=== PATIENT | male | born 1990 | race Caucasian/White ===

== ENCOUNTER 2017-08-03 14:56 | Emergency (ER) | payer SELFPAY ==
[2017-08-03] MEDS ORDERED: Dexamethasone 4 mg/ml Vial ONE (15:23)
[2017-08-03] MEDS ORDERED: Bicillin LA 1.2 MILLION UNITS/2 ML SYRINGE ONE (15:23)
== END 2017-08-03 15:53 | disposition home or self-care (01) ==
LOC: ERS 14:56
DX: J02.0 Streptococcal pharyngitis (principal)
CPT/HCPCS: 96372; J0561; J1100

== ENCOUNTER 2018-08-08 16:57 | Emergency (ER) | payer SELFPAY ==
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
== END 2018-08-08 19:14 | disposition home or self-care (01) ==
LOC: ERS 16:57
DX: M54.6 Pain in thoracic spine (principal); R42 Dizziness and giddiness; R63.1 Polydipsia; R35.8 Other polyuria; R11.0 Nausea; V89.2XXA Person injured in unspecified motor-vehicle accident, traffic, initial encounter
CPT/HCPCS: 36416; 70450; 72125; 72128; 72131; 96360